=== PATIENT | female | born 1955 | race Caucasian/White ===

== ENCOUNTER 2024-12-16 13:20 | Outpatient (CLI) | payer MEDICARE, OTHER ==
[~2024-12-16 13:20] MED LIST: Magnevist 469MG/ML 20 ML VIAL ONE
== END 2024-12-16 13:21 | disposition home or self-care (01) ==
LOC: MRI 13:20
PROVIDERS: ATTEND Specialist
DX: H90.3 Sensorineural hearing loss, bilateral (principal); H74.8X3 Other specified disorders of middle ear and mastoid, bilateral
CPT/HCPCS: 70553; 76376